=== PATIENT | female | born 1985 | race Hispanic/Latino ===

== ENCOUNTER 2020-11-10 08:28 | Day surgery (SDC) | payer OTHER ==
[~2020-11-10] VITALS: Ht 165.1 cm; Wt 78.5 kg
[2020-11-10] VITALS (12 sets, daily range): BP systolic 105–142; BP diastolic 56–83
[~2020-11-10 08:28] MED LIST: CYAN250014 PO; FERR-63 PO; FOLI0.4T6 PO; PREN-154 PO
[2020-11-10] MEDS ORDERED: CITRIC ACID/SODIUM CITRATE 30 ML UDCUP ONE (09:14)
[2020-11-10] MEDS ORDERED: LIDOCAINE HCL 400MG/20ML VIAL ONE (09:21)
[2020-11-10] MEDS ORDERED: FENTANYL CITRATE PF 50 MCG/1 ML 2ML VIAL ONE ×2 (09:21→10:44)
[2020-11-10] MEDS ORDERED: PROPOFOL 10 MG/ML 20ML VIAL IV ONE (09:21)
[2020-11-10] MEDS ORDERED: ONDANSETRON HCL 4 MG/2 ML VIAL ONE ×2 (09:21→11:41)
[2020-11-10] MEDS ORDERED: SUCCINYLCHOLINE 200MG/10ML SYR ONE (09:21)
[2020-11-10] MEDS ORDERED: EPHEDRINE SULFATE 50 MG/ML AMPULE ONE (09:23)
== END 2020-11-10 13:00 | disposition home or self-care (01) ==
LOC: ENDO 08:28 → DAH 08:28 → ENDO 13:00
PROVIDERS: ATTEND Internal Medicine Gastroenterology
DX: I85.00 Esophageal varices without bleeding (principal); Z20.822 Contact with and (suspected) exposure to COVID-19; I86.4 Gastric varices; K29.71 Gastritis, unspecified, with bleeding; D64.9 Anemia, unspecified; Z98.84 Bariatric surgery status; Z98.890 Other specified postprocedural states
CPT/HCPCS: 43244; 87635; A4215 ×2; A4216; A4221; A4222; A4223; A4606; A4620; A4663; C9803; J0330; J2405 ×2; J2704; J3010 ×2; J3490 ×2; J7030; G9654